=== PATIENT | female | born 1990 | race Caucasian/White ===

== ENCOUNTER → 2017-04-02 | Outpatient (CLI) | payer BC ==
--- NOTE | 2017-04-03 08:44 | USB ---
Reason for exam: clinical finding. History: Took hormonal contraceptives for 11 years beginning at age 15. Physical Findings: Nurse Summary: 1cm nodule in the left breast at 12:30 (nurse dw). US Breast LT Left breast ultrasound includes all four quadrants, the retroareolar region and axilla. Finding demonstrates a 0.5 x 0.4 x 0.7cm mixed lesion at the nipple. These results were verbally communicated with the patient and result sheet given to the patient on 04/02/17. ASSESSMENT: Probably benign, BI-RAD 3 RECOMMENDATION: Clinical management of the left breast. Manage patient on a clinical basis. Consider ultrasound core biopsy/FNA.
== END | disposition home or self-care (01) ==
LOC: RADMAMWWP 13:04
PROVIDERS: ATTEND Family Medicine
DX: N63 Unspecified lump in breast (principal)

== ENCOUNTER → 2021-01-02 | Outpatient (CLI) | payer BC, OTHER ==
[2021-01-02 16:29] VITALS: BP 114/79; PULSE 91; RESP 18; TEMP 97; BMI 48.7
--- NOTE | 2021-01-02 17:08 | P.HPBAR ---
Bariatric H&P - History & Physicial H&P Date: 01/02/21 History & Physicial: Visit/CC: initial visit Patient initial contact: Initial weight: Initial weight in pounds: Height: 5 ft 9 in Initial BMI: Last weight: Current weight: 149.685 kg Current weight in pounds: 330.00 Current BMI: 48.7 [place] body weight (based on NIH guidelines): 65.771 kg Excess body weight loss: The patient is a 30 year-old F who presents for Bariatric Assessment. DATE OF SERVICE: 01/02/2021 REASON FOR CONSULTATION: Initial bariatric evaluation. HISTORY OF PRESENT ILLNESS: Linnea Echols is a 30-year-old female who comes with lifelong morbid obesity. She comes in looking into gastrectomy p rocedures. She needs 12 months of medical supervised weight loss and is pending a food diary journal. She is unsure of her procedure of choice. Her highest was 351 pounds this year. She has adopted dietary restrictions. Her entire family is overweight. She denies dysphagia. She denies gastroesophageal reflux disease. She denies stomach or esophageal cancer. She denies ulcerative colitis or Crohns in her family. She denies arthritis of the back, hips, knees or ankles. She denies hypertension or diabetes. She snores. She denies daytime fatigue. She still has her gallbladder. She denies abdominal surgeries. She denies easy bruising or bleeding. She smokes and has second hand tobacco exposure. She denies blood clots in herself or family. She comes in for the first time in consultation for her morbid obesity. At height of 5 feet 9 inches, her ideal body weight is 168 pounds. Her highest weight is 351 pounds, BMI 51.9. She comes in 329 pounds. Her body mass index is 48.7. She is 161 pounds overweight. PAST MEDICAL HISTORY: 1. Morbid obesity due to excess calories 2. Body mass index of 51.9, initial PAST SURGICAL HISTORY: 1. Tonsillectomy HOME MEDICATIONS: Home Medications Medication Instructions Recorded Confirmed No Known Home Medications 01/02/21 01/02/21 ALLERGIES: Allergies Allergy/AdvReac Type Severity Reaction Status Date / Time No Known Allergies Allergy Verified 01/02/21 16:19 SOCIAL HISTORY: Current tobacco use. FAMILY HISTORY: No family history of ulcerative colitis disease or Crohn's disease. Family history of morbid obesity. No lupus in the family. No reports of stomach or esophageal cancer. REVIEW OF ORGAN SYSTEMS: CONSTITUTIONAL: At height of 5 feet 9 inches, her ideal body weight is 168 pounds. Her highest weight is 351 pounds, BMI 51.9. She comes in 329 pounds. Her body mass index is 48.7. She is 161 pounds overweight. HEENT: Denies any active troubles with vision or hearing. Denies troubles with swallowing. ENDOCRINE: Denies diabetes. No hypothyroidism. CARDIOVASCULAR: Denies past reports of palpitations or heart attacks or chest pain. Denies hypertensive heart disease. RESPIRATORY: Has daytime somnolence. Denies asthma. Denies chronic obstructive pulmonary disease. GASTROINTESTINAL: Denies any bright red blood per rectum. No diarrhea. No constipation. GENITOURINARY: Denies bladder urgency. No recent blood in urine MUSCULOSKELETAL: Denies lower back pain and joint pain. Denies osteoarthritis of the knees. NEURO: No headaches. No seizure disorders. PSYCH: Denies depression. No suicidal ideation. RHEUMATOLOGIC: No lupus. No rheumatoid arthritis. HEMATOLOGIC: Denies any abnormal bleeding or bruising. Denies past history of DVTs. SKIN: No rash. No skin cancer. PHYSICAL EXAM: VITAL SIGNS: Height 5 foot 9 inches, weight 329 pounds. BMI 48.7 Vital Signs Temp 97 F L 01/02/21 16:17 Pulse 91 01/02/21 16:17 Resp 18 01/02/21 16:17 BP 114/79 01/02/21 16:17 Pulse Ox GENERAL: Well-developed in no acute distress. HEENT: No scleral icterus. Extraocular movements grossly intact. Hears conversational speech. No nasal drainage. NECK: Supple without lymphadenopathy. CHEST: Nonlabored respirations with equal bilateral excursions. CARDIOVASCULAR: Regular rate and regular rhythm. Distal 2+ pulses. ABDOMEN: Obese, soft, nontender, nondistended. MUSCULOSKELETAL: No clubbing, cyanosis. NEURO: No focal or lateralizing signs. Cranial nerves 2 through 12 grossly within normal limits. PSYCH: Appropriate affect. Alert and oriented to person, place and time. SKIN: Good skin turgor. Well perfused. ASSESSMENT: 1. Morbid obesity due to excess calories 2. Body mass index of 51.9, initial PLAN: 1. Surgical options including a band, gastric bypass, sleeve gastrectomy were described in detail. Alternatives such as gastric balloon including duodenal switch were described. She is looking into all options. 2. The [place] bariatric surgical collaborative data and outcomes calculator were described with surgical options. 3. Recommend a bariatric metabolic panel to evaluate for micro- including macronutrient deficiencies. 4. For history of daytime somnolence, recommend evaluation and treatment for sleep apnea. 5. Dietary surveillance and counseling was reviewed. Increased protein intake over 65 grams daily advised. 6. Will need cardiac risk assessment. 7. Recommend medical risk assessment. 8. Psych assessment per insurance guidelines. 9. Recommend upper endoscopy. 10. Recommend 12-lead EKG. Thank you for this consultation. Past Medical History Past Medical History: No Reported History History of Any Multi-Drug Resistant Organisms: None Reported Past Surgical History: Tonsillectomy Past Anesthesia/Blood Transfusion Reactions: No Reported Reaction Past Psychological History: No Psychological Hx Reported Smoking Status: Current every day smoker Past Alcohol Use History: Rare Past Drug Use History: None Reported Surgical - Exam Vital Signs Temp Pulse Resp BP 97 F L 91 18 114/79 01/02/21 16:17 01/02/21 16:17 01/02/21 16:17 01/02/21 16:17 Bariatric Checklist Checklist: Plan: Checklist: EGD: 1. Hiatal hernia: 2. H. Pylori: HgbA1c: Vitamin D: Smoking: Primary care physician referral: NONE Psychiatry clearance: Cardiology clearance: Sleep study: Diet journal: VTE risk score: VTE risk level: Rehab needs at discharge:
== END | disposition home or self-care (01) ==
LOC: BARWHC3 16:08
PROVIDERS: ATTEND Surgery Plastic and Reconstructive Surgery
DX: E66.01 Morbid (severe) obesity due to excess calories (principal); Z68.43 Body mass index [BMI] 50.0-59.9, adult
CPT/HCPCS: 99211

== ENCOUNTER 2021-03-20 20:22 | Emergency (ER) | payer OTHER ==
[2021-03-20 20:33] VITALS: TEMP 98.7
[2021-03-20] MEDS ORDERED: IPRATROPIUM-ALBUTEROL 3 ML NEB INHALATION STA (20:49)
[2021-03-20] MEDS ORDERED: predniSONE 20 MG TAB PO STA (20:50)
--- NOTE | 2021-03-20 20:53 | ED ---
URI HPI - General Chief Complaint: Upper Respiratory Infection Stated Complaint: Dyspnea Time Seen by Provider: 03/20/21 20:35 Source: patient, EMS Mode of arrival: EMS Limitations: no limitations - History of Present Illness Initial Comments: 30-year-old female presents to emergency department with a chief complaint of cough and wheezing. Patient reports the symptoms started over the last several days. Patient reports history of seasonal ALLERGIES that typically are exacerbated during spring and fall. She does report occasional wheezing around this time a year. Never officially diagnosed with asthma. History of smoking but not currently. She reports feeling slightly short of breath but denies any chest pain. Stated this is typical for her whenever the seasons change. States she went to an urgent care who advised to come to the emergency department because her oxygen levels were low. She also reports sneezing, clear bilateral rhinorrhea and occasional sore throat. Denies any fevers or chills. She had Covid last month one month ago. - Related Data Previous Rx's Medication Instructions Recorded Albuterol Sulfate [Ventolin HFA] 1 - 2 puff INHALATION Q6H PRN #1 03/20/21 inhaler Azithromycin [Zithromax Z-pack (6 0 mg PO DIRECTED #1 pack 03/20/21 tabs)] predniSONE 50 mg PO DAILY #5 tab 03/20/21 Allergies Allergy/AdvReac Type Severity Reaction Status Date / Time No Known Allergies Allergy Verified 01/02/21 16:19 Review of Systems ROS Statement: Those systems with pertinent positive or pertinent negative responses have been documented in the HPI. ROS Other: All systems not noted in ROS Statement are negative. Past Medical History Past Medical History: No Reported History History of Any Multi-Drug Resistant Organisms: None Reported Past Surgical History: No Surgical Hx Reported, Tonsillectomy Past Anesthesia/Blood Transfusion Reactions: No Reported Reaction Past Psychological History: No Psychological Hx Reported Smoking Status: Former smoker Past Alcohol Use History: None Reported, Rare Past Drug Use History: None Reported General Exam Limitations: no limitations General appearance: alert, in no apparent distress, obese Head exam: Present: atraumatic, normocephalic, normal inspection Eye exam: Present: normal appearance, PERRL, EOMI Pupils: Present: normal accommodation ENT exam: Present: normal exam, normal oropharynx, mucous membranes moist, TM's normal bilaterally, normal external ear exam Neck exam: Present: normal inspection, full ROM. Absent: tenderness Respiratory exam: Present: wheezes (Diffuse bilateral wheezing, mild.). Absent: respiratory distress, rales, rhonchi, stridor, chest wall tenderness, accessory muscle use Cardiovascular Exam: Present: regular rate, normal rhythm, normal heart sounds. Absent: systolic murmur GI/Abdominal exam: Present: soft. Absent: distended, tenderness, guarding, rebound Extremities exam: Present: normal inspection, full ROM, normal capillary refill. Absent: tenderness, pedal edema, joint swelling Back exam: Present: normal inspection, full ROM. Absent: tenderness, CVA tenderness (R), CVA tenderness (L) Neurological exam: Present: alert, oriented X3 Psychiatric exam: Present: normal affect, normal mood Skin exam: Present: warm, dry, intact, normal color Course Vital Signs 03/20/21 03/20/21 03/20/21 20:28 21:41 21:58 Temperature 98.7 F Pulse Rate 92 104 H 104 H Respiratory 18 Rate Blood Pressure 148/97 O2 Sat by Pulse 95 Oximetry 03/20/21 22:39 Temperature Pulse Rate 82 Respiratory 20 Rate Blood Pressure 138/82 O2 Sat by Pulse 94 L Oximetry Medical Decision Making - Medical Decision Making 22-year-old male presents to emergency Department with a chief complaint of cough and congestion. On physical examination, patient does not appear to be in respiratory distress. She has mild, diffuse wheezing bilaterally. She was given a DuoNeb treatment along with 60 mg of prednisone. On arrival, vital signs within normal limits. Throughout ED stay, she was slightly tachycardic which eventually improved. On reevaluation, the wheezing had improved and she states her shortness of breath is also feeling better. There was no chest pain. I offered laboratory workup to the patient, she declined. X-ray did reveal mild Pankaj versus infiltrate. We'll cover for atypical pneumonia. We'll discharge her with 5 days of prednisone, albuterol inhaler and azithromycin. Strict return parameters were thoroughly discussed with patient was understanding and agreeable. Advised to follow-up with the primary care physician. - EKG Data EKG Comments: Sinus tachycardia Ventricular rate 106, MO 160, QRS 96, QTC 486. Disposition Clinical Impression: Pneumonia Disposition: HOME SELF-CARE Condition: Stable Instructions (If sedation given, give patient instructions): Pneumonia (ED) Additional Instructions: Take prescribed medication as directed. Follow-up with her primary care physician. Return to emergency department if symptoms worsen. Prescriptions: predniSONE 50 mg PO DAILY #5 tab Albuterol Sulfate [Ventolin HFA] 1 - 2 puff INHALATION Q6H PRN #1 inhaler PRN Reason: Wheezing Azithromycin [Zithromax Z-pack (6 tabs)] 0 mg PO DIRECTED #1 pack Is patient prescribed a controlled substance at d/c from ED?: No Referrals: None,Stated [Primary Care Provider] - 1-2 days Time of Disposition: 22:20
--- NOTE | 2021-03-20 21:41 | XR ---
EXAMINATION TYPE: XR chest 2V DATE OF EXAM: 03/20/2021 COMPARISON: NONE HISTORY: Cough and shortness of breath. TECHNIQUE: Frontal and lateral views of the chest are obtained. FINDINGS: There is mild perihilar and bibasilar streaky opacities. No pleural effusion, or pneumotho rax seen. The cardiac silhouette size is within normal limits. The osseous structures are intact. IMPRESSION: Mild atelectasis versus infiltrate.
[2021-03-20 22:40] VITALS: BP 138/82; PULSE 82; RESP 20
== END 2021-03-20 22:40 | disposition home or self-care (01) ==
LOC: EC 20:22
DX: J18.9 Pneumonia, unspecified organism (principal); Z87.891 Personal history of nicotine dependence
CPT/HCPCS: 94640; 93005; 71046; 99284; J7512

== ENCOUNTER 2021-06-10 09:33 | Emergency (ER) | payer OTHER ==
[2021-06-10] MEDS ORDERED: SODIUM CHLORIDE 0.9% 1,000 ML IV STA (10:09)
--- NOTE | 2021-06-10 10:12 | ED ---
General Adult HPI - General Chief complaint: Shortness of Breath Stated complaint: SOB Source: patient, RN notes reviewed Mode of arrival: ambulatory Limitations: no limitations - History of Present Illness Initial comments: 31-year-old obese white female presents to the emergency room from [facility] today with 2 days of cough and shortness of breath. Patient states that she [place] and pneumonia in March and ever since not breathing right. She states for the past 2 days she's had an increase in her cough and shortness of breath and went to [facility] today. They gave her an albuterol treatment and SolumMedrol injection. She states that they told her to come to the emergency room because her oxygen level was low and to be evaluated for possible pneumonia. Patient denies chest pain at this time. She is a nonsmoker. -: days(s) (2) Location: chest Radiation: non-radiation Severity scale (1-10): 0 Treatments Prior to Arrival: other (DuoNeb and Solu-Medrol injection, Covid test) - Related Data Previous Rx's Medication Instructions Recorded Albuterol Inhaler [Ventolin Hfa 2 puff INHALATION RT-QID 30 Days 06/10/21 Inhaler] #1 puff predniSONE 50 mg PO DAILY #5 tab 06/10/21 Allergies Allergy/AdvReac Type Severity Reaction Status Date / Time codeine Allergy Unknown Verified 06/10/21 10:39 Review of Systems ROS Statement: Those systems with pertinent positive or pertinent negative responses have been documented in the HPI. ROS Other: All systems not noted in ROS Statement are negative. Past Medical History Past Medical History: Pneumonia History of Any Multi-Drug Resistant Organisms: None Reported Past Surgical History: No Surgical Hx Reported, Tonsillectomy Past Anesthesia/Blood Transfusion Reactions: No Reported Reaction Past Psychological History: No Psychological Hx Reported Smoking Status: Former smoker Past Alcohol Use History: None Reported, Rare Past Drug Use History: None Reported General Exam Limitations: no limitations General appearance: alert, in no apparent distress Head exam: Present: atraumatic, normocephalic, normal inspection Eye exam: Present: normal appearance, PERRL, EOMI. Absent: scleral icterus, conjunctival injection, periorbital swelling Pupils: Present: normal accommodation ENT exam: Present: normal exam, normal oropharynx, mucous membranes moist Neck exam: Present: normal inspection, full ROM. Absent: tenderness, meningismus, lymphadenopathy, thyromegaly Respiratory exam: Present: wheezes, rhonchi. Absent: stridor, chest wall tenderness, accessory muscle use, decreased breath sounds Cardiovascular Exam: Present: normal rhythm, tachycardia, normal heart sounds. Absent: systolic murmur, diastolic murmur, rubs, gallop, clicks GI/Abdominal exam: Present: soft, normal bowel sounds. Absent: distended, tenderness, guarding, rebound, rigid Extremities exam: Present: normal inspection, full ROM, normal capillary refill. Absent: tenderness, pedal edema, joint swelling, calf tenderness Back exam: Present: normal inspection, full ROM. Absent: tenderness, CVA tenderness (R), CVA tenderness (L), muscle spasm, paraspinal tenderness, vertebral tenderness Neurological exam: Present: alert, oriented X3, CN II-XII intact Psychiatric exam: Present: normal affect, normal mood Skin exam: Present: warm, dry, intact, normal color. Absent: rash, cyanosis, diaphoretic, erythema, petechiae, pallor, mottled Course Vital Signs 06/10/21 06/10/21 06/10/21 09:47 10:40 11:46 Temperature 98.5 F Pulse Rate 102 H 98 Respiratory 28 H 26 H 24 Rate Blood Pressure 136/82 118/77 O2 Sat by Pulse 91 L 92 L Oximetry 06/10/21 06/10/21 06/10/21 11:48 11:55 12:50 Temperature 98.1 F Pulse Rate 94 95 105 H Respiratory 20 Rate Blood Pressure 146/72 O2 Sat by Pulse 93 L Oximetry EKG Findings - EKG Results: EKG: sinus rhythm (Ventricular rate 97, HI interval 0.168, QRS of 0.98, QTc of 0.467) Medical Decision Making - Medical Decision Making Chest x-ray shows no acute cardiopulmonary process. WBC count is 10.1, d-dimer is negative at 0.50. EKG shows normal sinus rhythm. Magnesium is 1.7. Joey bartlett's pulse ox is 92%. She will be prescribed prednisone for 5 days along with an albuterol inhaler and directed to follow up with her primary care doctor and pulmonology. She was also directed to return to the emergency room with worsening shortness of breath, fever, chest pain or dizziness. Case discussed with Dr. Byrne - Lab Data Result diagrams: 06/10/21 10:18 06/10/21 10:18 Lab Results 06/10/21 06/10/21 06/10/21 Range/Units 10:18 10:18 10:18 WBC 10.1 (3.8-10.6) k/uL RBC 5.36 (3.80-5.40) m/uL Hgb 15.1 (11.4-16.0) gm/dL Hct 46.0 (34.0-46.0) % MCV 85.9 (80.0-100.0) fL MCH 28.3 (25.0-35.0) pg MCHC 32.9 (31.0-37.0) g/dL RDW 14.2 (11.5-15.5) % Plt Count 315 (150-450) k/uL MPV 7.6 Neutrophils % 76 % Lymphocytes % 15 % Monocytes % 4 % Eosinophils % 5 % Basophils % 1 % Neutrophils # 7.7 (1.3-7.7) k/uL Lymphocytes # 1.5 (1.0-4.8) k/uL Monocytes # 0.4 (0-1.0) k/uL Eosinophils # 0.5 (0-0.7) k/uL Basophils # 0.1 (0-0.2) k/uL PT 10.3 (9.0-12.0) sec INR 1.0 (<1.2) APTT 24.0 (22.0-30.0) sec D-Dimer 0.50 (<0.60) mg/L FEU Sodium 135 L (137-145) mmol/L Potassium 4.1 (3.5-5.1) mmol/L Chloride 106 (98-107) mmol/L Carbon Dioxide 22 (22-30) mmol/L Anion Gap 7 mmol/L BUN 11 (7-17) mg/dL Creatinine 0.46 L (0.52-1.04) mg/dL Est GFR (CKD-EPI)AfAm >90 (>60 ml/min/1.73 sqM) Est GFR (CKD-EPI)NonAf >90 (>60 ml/min/1.73 sqM) Glucose 122 H (74-99) mg/dL Calcium 9.5 (8.4-10.2) mg/dL Magnesium 1.7 (1.6-2.3) mg/dL Total Bilirubin 0.3 (0.2-1.3) mg/dL AST 38 H (14-36) U/L ALT 58 H (4-34) U/L Alkaline Phosphatase 108 (38-126) U/L Total Protein 7.1 (6.3-8.2) g/dL Albumin 4.0 (3.5-5.0) g/dL Disposition Clinical Impression: Bronchitis Disposition: HOME SELF-CARE Condition: Fair Instructions (If sedation given, give patient instructions): Acute Bronchitis (ED) Additional Instructions: Take the prednisone as prescribed and do not take Motrin while taking prednisone. Use the albuterol inhaler every 4 hours as needed for difficulty in breathing. Follow-up with the primary care doctor next week and pulmonology as referred. Return if any worsening symptoms, difficulty breathing or fevers. Prescriptions: predniSONE 50 mg PO DAILY #5 tab Albuterol Inhaler [Ventolin Hfa Inhaler] 2 puff INHALATION RT-QID 30 Days #1 puff Is patient prescribed a controlled substance at d/c from ED?: No Referrals: Valerio Jett DO [Primary Care Provider] - 1-2 days Annie Feliciano MD [STAFF PHYSICIAN] - 1-2 days
[2021-06-10 10:38] LABS: Basophils # (A) 0.1 k/uL (0-0.2); Basophils % (A) 1 %; Eosinophils # (A) 0.5 k/uL (0-0.7); Eosinophils % (A) 5 %; HGB 15.1 gm/dL (11.4-16.0); Lymphocytes # (A) 1.5 k/uL (1.0-4.8); Lymphocytes % (A) 15 %; MCH 28.3 pg (25.0-35.0); MCHC 32.9 g/dL (31.0-37.0); MCV 85.9 fL (80.0-100.0); Mean Platelet Volume 7.6; Monocytes # (A) 0.4 k/uL (0-1.0); Monocytes % (A) 4 %; Neutrophils # (A) 7.7 k/uL (1.3-7.7); Neutrophils % (A) 76 %; Platelet Count 315 k/uL (150-450); RBC 5.36 m/uL (3.80-5.40); RDW 14.2 % (11.5-15.5); WBC 10.1 k/uL (3.8-10.6)
--- NOTE | 2021-06-10 10:51 | XR ---
EXAMINATION TYPE: XR chest 2V DATE OF EXAM: 06/10/2021 COMPARISON: Conclusion HISTORY: Chest pain TECHNIQUE: Frontal and lateral views of the chest are obtained. FINDINGS: There is no focal air space opacity. No evidence for pneumothorax. No pleural effusion. The cardiac silhouette size is within normal limits. The osseous structures are grossly intact. IMPRESSION: 1. No acute cardiopulmonary process.
[2021-06-10 10:54] LABS: ALT 58 U/L (4-34); AST 38 U/L (14-36); African American GFR (CKD) >90 (>60 ml/min/1.73 sqM); Alkaline Phosphatase 108 U/L (38-126); Anion Gap 7 mmol/L; Blood Urea Nitrogen 11 mg/dL (7-17); Calcium 9.5 mg/dL (8.4-10.2); Carbon Dioxide 22 mmol/L (22-30); Chloride 106 mmol/L (98-107); Glucose 122 mg/dL (74-99); Magnesium 1.7 mg/dL (1.6-2.3); Non-African American GFR(CKD) >90 (>60 ml/min/1.73 sqM); Potassium 4.1 mmol/L (3.5-5.1); Sodium 135 mmol/L (137-145); Total Bilirubin 0.3 mg/dL (0.2-1.3); Total Protein 7.1 g/dL (6.3-8.2)
[2021-06-10 10:58] LABS: Prothrombin Time 10.3 sec (9.0-12.0)
[2021-06-10] MEDS ORDERED: IPRATROPIUM-ALBUTEROL 3 ML NEB INHALATION STA (11:21)
[2021-06-10 12:50] VITALS: BP 146/72; PULSE 105; RESP 20; TEMP 98.1
== END 2021-06-10 12:50 | disposition home or self-care (01) ==
LOC: EC 09:33
DX: J40 Bronchitis, not specified as acute or chronic (principal); E66.9 Obesity, unspecified; Z86.16 Personal history of COVID-19; Z68.41 Body mass index [BMI] 40.0-44.9, adult; Z87.891 Personal history of nicotine dependence; Z88.5 Allergy status to narcotic agent
CPT/HCPCS: 36415; 71046; 80053; 83735; 85025; 85379; 85610; 85730; 93005; 94640; 99285

== ENCOUNTER → 2021-12-27 | Outpatient (CLI) | payer OTHER ==
[2021-12-29 11:23] LABS: Coronavirus SARS CoV-2 Detected (Not Detected)
== END | disposition home or self-care (01) ==
LOC: LABWHC1 10:30
PROVIDERS: ATTEND Family Medicine
DX: U07.1 COVID-19 (principal)
CPT/HCPCS: U0003; C9803; U0005